=== PATIENT | female | born 1950 | race Caucasian/White ===

== ENCOUNTER 2018-07-16 09:05 | Outpatient (CLI) | payer OTHER ==
[2018-07-16] MEDS ORDERED: PLAVIX75 MG PO (13:20)
[2018-07-16] MEDS ORDERED: PLETAL PO (13:21)
[2018-07-16] MEDS ORDERED: LANTUS (13:21)
== END 2018-07-16 12:56 | disposition home or self-care (01) ==
LOC: EKG 09:05
DX: I10 Essential (primary) hypertension (principal)

== ENCOUNTER 2018-07-22 05:20 | Day surgery (SDC) | payer OTHER ==
[~2018-07-22 05:20] MED LIST: LANTUS; PLAVIX75 MG PO; PLETAL PO
[2018-07-22] MEDS ORDERED: ACETAMINOPHEN-1 EAC2 PO (10:43)
[2018-07-22] MEDS ORDERED: MACROBID 100 M100 MG PO (10:44)
== END 2018-07-22 16:00 | disposition home or self-care (01) ==
LOC: CIR.AMB 05:20
DX: N81.11 Cystocele, midline (principal)

== ENCOUNTER 2022-08-07 06:18 | Day surgery (SDC) | payer OTHER ==
[~2022-08-07 06:18] MED LIST changes: +ACETAMINOPHEN-1 EAC2 PO; +ATORVASTATIN CA10 MG PO; +COZAAR100 MG PO; +GLIPIZIDE ER2.5 MG PO; +MACROBID 100 M100 MG PO
[2022-08-07] MEDS ORDERED: TRAM1TAB98 PO (11:10)
[2022-08-07] MEDS ORDERED: MACROBID 100 M100 MG PO (11:10)
== END 2022-08-07 15:15 | disposition home or self-care (01) ==
LOC: CIR.AMB 06:18
PROVIDERS: ATTEND Obstetrics & Gynecology Gynecology
DX: N81.11 Cystocele, midline (principal); N81.12 Cystocele, lateral; N81.5 Vaginal enterocele; Z20.822 Contact with and (suspected) exposure to COVID-19; Z88.6 Allergy status to analgesic agent